=== PATIENT | male | born 1945 | race Caucasian/White ===

== ENCOUNTER 2018-07-30 06:53 | Day surgery (SDC) | payer BC, MEDICARE ==
[2018-07-30] MEDS ORDERED: Midazolam 1 MG/ML 2 ML SDV IV ONE (06:54)
[2018-07-30] MEDS ORDERED: Propofol 200 MG/20 ML SDV IV ONE (06:54)
[2018-07-30] MEDS ORDERED: Lactated Ringers 1,000 ML IV SCH (07:00)
--- NOTE | 2018-07-30 09:43 | PCM.OPNOTE ---
- General Post-Op/Procedure Note Date of Surgery/Procedure: 07/30/18 Operative Procedure(s): c scope with bx Findings: ascending colon polyp x2 Pre Op Diagnosis: hx of colon polyps Post-Op Diagnosis: ascending colon polyp x2 Anesthesia Technique: Moderate Sedation Primary Surgeon: Jonathan Zambrano Anesthesia Provider: Nna Slater Pathology: ascending colon polyp x2 Complications: None Condition: Good Free Text/Narrative:: see dictation
[2018-07-30 11:08] VITALS: BP 109/76
--- NOTE | 2018-07-30 11:35 | OR ---
DATE OF OPERATION: 07/30/2018 SURGEON: Jonathan Zambrano MD PROCEDURE PERFORMED: Colonoscopy with cold forceps biopsy. PREOPERATIVE DIAGNOSIS: Personal history of colon polyps. POSTOPERATIVE DIAGNOSIS: Polyp x2 in the ascending colon. INDICATIONS FOR PROCEDURE: This is a 72-year-old white male, who presents for followup colonoscopy. He has a personal history of adenomatous colon polyps. DESCRIPTION OF OPERATION: After an excellent IV sedation was administered, digital rectal exam performed. No marked abnormality was noted. Flexible colonoscope was inserted and advanced to the cecum. Prep was excellent. The following findings were noted. In the ascending colon, two sessile lesions, one running along the length of a fold, approximately 3 mm wide. Biopsied and obliterated with cold biopsy forceps. The other one was distal to this. This had a flat, plaque-like appearance. Again, biopsied and obliterated with cold biopsy forceps as neither were amenable to snare biopsy. Transverse colon was unremarkable. Descending colon was unremarkable. Sigmoid and rectum were unremarkable. Results by letter. /[id number] /MODL
== END 2018-07-30 11:00 | disposition home or self-care (01) ==
LOC: FB.SDS 06:53
PROVIDERS: ATTEND Surgery
DX: Z12.11 Encounter for screening for malignant neoplasm of colon (principal); D12.2 Benign neoplasm of ascending colon; I10 Essential (primary) hypertension; E78.5 Hyperlipidemia, unspecified; Z86.010 Personal history of colon polyps; Z79.899 Other long term (current) drug therapy
CPT/HCPCS: 45380; 88305; J2250; J2704; J7120

== ENCOUNTER 2022-11-21 08:15 | Day surgery (SDC) | payer BC, MEDICARE ==
[2022-11-21] MEDS ORDERED: Midazolam 1 MG/ML 2 ML SDV IV ONE (08:16)
[2022-11-21] MEDS ORDERED: fentaNYL 100 MCG/2 ML SDV IV ONE (08:16)
[2022-11-21] MEDS ORDERED: Lactated Ringers 1,000 ML IV PRN (08:30)
[2022-11-21] MEDS ORDERED: Sodium Chloride 0.9% 10 ML Syringe FLUSH PRN (08:30)
[2022-11-21] MEDS ORDERED: acetaZOLAMIDE 500 MG Cap.ER PO ONE (09:00)
[2022-11-21 10:55] VITALS: BP 120/74; PULSE 66
== END 2022-11-21 10:44 | disposition home or self-care (01) ==
LOC: FB.SDS 08:15
PROVIDERS: ATTEND Ophthalmology
DX: H26.9 Unspecified cataract (principal); E78.5 Hyperlipidemia, unspecified; I10 Essential (primary) hypertension; Z79.82 Long term (current) use of aspirin; Z79.899 Other long term (current) drug therapy
CPT/HCPCS: 00142; 66984; A9270; J2250; J3010; J3490; V2632

== ENCOUNTER 2022-12-19 06:25 | Day surgery (SDC) | payer BC, MEDICARE ==
[2022-12-19] MEDS ORDERED: Midazolam 1 MG/ML 2 ML SDV IV ONE (06:26)
[2022-12-19] MEDS ORDERED: fentaNYL 100 MCG/2 ML SDV IV ONE (06:26)
[2022-12-19] MEDS ORDERED: Sodium Chloride 0.9% 10 ML Syringe FLUSH PRN (06:30)
[2022-12-19] MEDS ORDERED: Lactated Ringers 1,000 ML IV SCH (06:30)
[2022-12-19] MEDS ORDERED: acetaZOLAMIDE 500 MG Cap.ER PO ONE (08:30)
[2022-12-19 09:36] VITALS: BP 101/62; PULSE 65
== END 2022-12-19 09:10 | disposition home or self-care (01) ==
LOC: FB.SDS 06:25
PROVIDERS: ATTEND Ophthalmology
DX: H25.812 Combined forms of age-related cataract, left eye (principal); I10 Essential (primary) hypertension; I25.2 Old myocardial infarction; I25.10 Atherosclerotic heart disease of native coronary artery without angina pectoris; K76.9 Liver disease, unspecified; E11.9 Type 2 diabetes mellitus without complications; Z96.641 Presence of right artificial hip joint; Z79.82 Long term (current) use of aspirin; Z79.899 Other long term (current) drug therapy
CPT/HCPCS: 00142; A9270-GY; J2250; J3010; J3490; V2632

== ENCOUNTER 2024-08-25 06:07 | Day surgery (SDC) | payer BC, MEDICARE ==
[2024-08-25] MEDS ORDERED: Propofol 200 MG/20 ML SDV IV ONE (06:08)
[2024-08-25] MEDS ORDERED: Glycopyrrolate 0.2 MG/ML 5 ML MDV IV ONE (06:08)
[2024-08-25] MEDS ORDERED: Lidocaine 2% 100 MG/5 ML Syringe IVPUSH ONE (06:08)
[2024-08-25] MEDS ORDERED: Sodium Chloride 0.9% 10 ML Syringe FLUSH PRN (06:15)
[2024-08-25] MEDS: Lactated Ringers 1,000 ML IV SCH (06:45)
[2024-08-25] MEDS: Simethicone Drops 40 MG/0.6 ML 30 ML Bottle ONE (07:35)
[2024-08-25 09:52] VITALS: BP 131/81; PULSE 68
== END 2024-08-25 09:30 | disposition home or self-care (01) ==
LOC: FB.SDS 06:07
PROVIDERS: ATTEND Surgery
DX: Z12.11 Encounter for screening for malignant neoplasm of colon (principal); D12.6 Benign neoplasm of colon, unspecified; K55.20 Angiodysplasia of colon without hemorrhage; Z86.0101 Personal history of adenomatous and serrated colon polyps; K42.0 Umbilical hernia with obstruction, without gangrene; I10 Essential (primary) hypertension; E78.5 Hyperlipidemia, unspecified; Z79.82 Long term (current) use of aspirin; Z79.899 Other long term (current) drug therapy
CPT/HCPCS: 00811; 45381; 45384; 45385; 88305; A9270; J1596; J2704; J7120